=== PATIENT | male | born 1970 | race Caucasian/White ===

== ENCOUNTER 2021-02-26 12:20 | Emergency (ER) | payer OTHER ==
[~2021-02-26] VITALS: Ht 180.3 cm; Wt 95.3 kg
== END 2021-02-26 15:01 | disposition home or self-care (01) ==
LOC: ER 12:20
DX: S01.02XA Laceration with foreign body of scalp, initial encounter (principal); W45.8XXA Other foreign body or object entering through skin, initial encounter; Y93.89 Activity, other specified; Y92.69 Other specified industrial and construction area as the place of occurrence of the external cause; Y99.8 Other external cause status

== ENCOUNTER 2022-04-07 10:25 | Emergency (ER) | payer OTHER ==
[~2022-04-07] VITALS: Ht 180.3 cm; Wt 90.7 kg
== END 2022-04-07 16:42 | disposition home or self-care (01) ==
LOC: ER 10:25
DX: N20.1 Calculus of ureter (principal); N23 Unspecified renal colic

== ENCOUNTER 2022-04-21 18:54 | Emergency (ER) | payer OTHER ==
[~2022-04-21] VITALS: Ht 172.7 cm; Wt 79.4 kg
== END 2022-04-22 12:20 | disposition home or self-care (01) ==
LOC: ER 18:54
DX: M79.601 Pain in right arm (principal); M79.602 Pain in left arm; Z20.822 Contact with and (suspected) exposure to COVID-19